=== PATIENT | male | born 1945 | race Caucasian/White ===

== ENCOUNTER 2023-06-16 10:35 | Outpatient (AMB) | payer MEDICARE, MEDICAID, SELFPAY ==
--- NOTE | 2023-06-16 10:40 | MHC.OFFVIS ---
Intake Vital Signs 06/16/23 11:06 Height 6 ft Weight 162 lb BMI 22.0 BP 188/79 H Blood Pressure Location Rt brachial Position Sitting Pulse 58 Pulse Source Pulse Oximeter Pulse Oximetry (%) 96 Oxygen Delivery Method Room Air Intake Visit Reasons: CHRONIC BACK PAIN Intake Note: Pain today 06/23 Automatic Silk Screen Printer Required: No Allergies No Known Allergies Allergy (Verified 06/16/23 11:06) HPI CHRONIC BACK PAIN HPI Details Patient is a 78 years old male with history of chronic back pain with extensive degenerative changes that has not responded to steroid injections or nerve ablation presents today for initial evaluation of mid-low back pain that radiates bilateral legs posteriorly but also at times anteriorly. He also reports bilateral knee pain with tenderness in medial and lateral aspects of each knee, left worse than right. Pain increases with any kind of activity or movement and better with sleep. Pain interferes with his daily activities, functioning and significantly affecting his quality of life. He is currently managed on oxycodone 10 mg TID prn by his PCP and previously failed tramadol trial. Denies any fever, weight changes, abdominal or groin pain, numbness, tingling, bladder or bowel incontinence or saddle anesthesia. Denies previous spine surgery but received multiple back injections and RFA with minimal effects in the remote past at [facility]. Location Mid to low back pain radiates to lower extremities anteriorly/posteriorly Duration Chronic pain for past 25 years Characteristics of symptom or complaint Aching, throbbing, tingling, shooting, sharp, spasming, Aggravating or associated factors Movements, changing position, walking, bending, climbing stairs Relieving factors Lidocaine patches, oxycodone, Treatment PT, injections 20+ years ago -minimal temporary relief PFSH Medical History Anxiety CAD (coronary artery disease) Chronic back pain Hyperlipidemia Hypertension Neuropathy Peripheral vascular disease PVC (premature ventricular contraction) Tobacco abuse Warthin tumor Surgical History Hx of CABG Social History Patient Tobacco Use Status: Current everyday Tobacco user Cigarettes Per Day: 8 Substance Use Type: Caffiene Substance Use Type Other:: coffee 1 cup daily Review of Systems Const All systems reviewed & are unremarkable except as noted in HPI and below Neuro Denies Abnormal speech present and Denies Sensory deficit (Neuro) Physical Exam Vital Signs: Last Vital Signs Pulse 58 06/16/23 11:06 BP 188/79 H 06/16/23 11:06 Pulse Ox 96 06/16/23 11:06 Oxygen Delivery Method Room Air 06/16/23 11:06 BMI result Body Mass Index 22.0 General: Appears afebrile. Alert and oriented. Mood and affect appropriate. Follows and participates in conversation appropriately. Respiratory effort is unlabored. Able to transition from sit to stand unassisted. Back/Spine/Pelvis Other: Back: back tenderness Cervical Spine: cervical ROM normal and No Cervical spine tenderness Thoracic/Lumbar Spine: thoracic and lumbar spine normal to inspection, No Thoracic/lumbar spine scar(s), Lasegue's sign positive on the left and localized, pain with thoraco-lumbar ROM (pain with flexion and extension, +facet loading bilat), paraspinal muscle tenderness, No thoracic spinal tenderness and lumbar spinal tenderness Pelvis: buttock tenderness bilaterally Sacroiliac joints: bilaterally (+Jeannie, +Stinchfield, +Patricks, +Gaenslen +Pelvic compression) tender to palpation Neuro General: moves all extremities Cognition (Neuro): normal cognition Speech: No Abnormal speech present Gait exam (Neuro): Antalgic gait present and No Assistive device used Motor exam (neuro): 5/5 motor strength present throughout, no tremor noted and Motor abnormalities not present Sensory Exam: No Sensory deficit (Neuro) Extrem Right lower extremity: knee (Full ROM but with pain) Details: normal to inspection, tenderness Location: of the medial joint line and of the lateral joint line and crepitus; no swelling, no ecchymosis and no unusual warmth Left lower extremity: knee (Limited ROM, pain with flexion or SLR testing) Details: normal to inspection, tenderness Location: of the medial joint line and of the lateral joint line and crepitus; no swelling, no ecchymosis and no unusual warmth Results Reviewed Results Reviewed: No imaging results are available today for review Assessment & Plan Assessment & Plan (1) Lumbar degenerative disc disease: Code(s): M51.36 - Other intervertebral disc degeneration, lumbar region (2) Lumbar spondylosis: Code(s): M47.816 - Spondylosis without myelopathy or radiculopathy, lumbar region (3) Lumbar radiculitis: Code(s): M54.16 - Radiculopathy, lumbar region (4) Bilateral knee pain: Code(s): M25.561 - Pain in right knee; M25.562 - Pain in left knee (5) Opioid use agreement exists: Code(s): Z79.891 - care home (current) use of opiate analgesic Plan 1. Medical release request sent to [facility] for past injections and procedures, recent imaging request also sent to PCP office. 2. Discussed interventional and conservative treatments for patient's pain generators, including diagnostic vs therapeutic injections for potential peripheral nerve stimulation with SPRINT trial, SCS trial, and RFA procedures. Patient denies any recent lumbar spine imaging. Will obtain lumbar spine imaging to assess degree of degenerative changes, any subluxation, listhesis or pars defects prior to interventional treatments. 3. Continue current opioid management per [facility] at PCP office. I have informed patient that our office does not offer opioid therapy at this time. All questions and concerns have been answered and patient agreed with the plan. Follow up for xray/records review and sooner if needed. Coding Level of Care Code New Pt Level 4 (49531) Diagnoses Lumbar degenerative disc disease M51.36 Lumbar spondylosis M47.816 Lumbar radiculitis M54.16 Bilateral knee pain M25.561; M25.562 Opioid use agreement exists Z79.891
[2023-06-16 11:06] VITALS: BP 188/79; PULSE 58; O2SAT 96; BMI 22.0
== END 2023-06-16 11:06 | disposition home or self-care (01) ==
PROVIDERS: PCP Family Medicine; Visit Provider Nurse Practitioner Family
DX: M51.36 Other intervertebral disc degeneration, lumbar region (principal); M47.816 Spondylosis without myelopathy or radiculopathy, lumbar region; M54.16 Radiculopathy, lumbar region; M25.561 Pain in right knee; M25.562 Pain in left knee; Z79.891 Long term (current) use of opiate analgesic
CPT/HCPCS: 99204

== ENCOUNTER → 2023-06-16 10:35 | Outpatient (BNVA) | payer MEDICARE, MEDICAID, SELFPAY | PROVIDERS: PCP Family Medicine; Visit Provider Nurse Practitioner Family | DX: M53.3 Sacrococcygeal disorders, not elsewhere classified (principal); M51.36 Other intervertebral disc degeneration, lumbar region; M47.816 Spondylosis without myelopathy or radiculopathy, lumbar region; M54.16 Radiculopathy, lumbar region; M25.561 Pain in right knee; M25.562 Pain in left knee | CPT/HCPCS: 99202 ==